=== PATIENT | male | born 1945 | race Caucasian/White ===

== ENCOUNTER → 2016-10-21 | Outpatient (CLI) | payer OTHER ==
[~2016-10-21] VITALS: Ht 167.6 cm; Wt 64.4 kg
[~2016-10-21] MED LIST: BENTYL 10 MG CA10 M1 PO; CENTRUM SILVER1 EAC2 PO; FISH OIL 1,001000 M2 PO; FOLIC ACID 40400 MCG PO; PERCOCET PO; SIMVASTATIN5 MG PO; VALTREX 500 MG500 MG PO; VITAMIN B-12500 MCG PO; VITAMIN D1000 UNI1 PO; VITAMINC500 PO
--- NOTE | ~2016-10-21 | S ---
[facility] [place] [address] SURGICAL PATH RPT PROCEDURE Name: EULALIO LIRIANO Room #: REG CLI M.R.#: [id number] Admission: 10/21/16 Date of : 47 Discharge: Report #: [id number] Path Case #: [id number] PATHOLOGY REPORT COLLECTION DATE: 10/21/2016 RECEIVED DATE: 10/21/2016 SUBMITTING PHYS: Dr. Afshin Turner OTHER PHYS: Dr Anny Aceves SPECIMEN(S) RECEIVED: A.Bx at cecal polyp (forceps) * * * * * * * * * * * * FINAL DIAGNOSIS: Polyp, cecal polyp, endoscopic biopsy: - Hyperplastic changes and a lymphoid aggregate. - Negative for dysplasia. (IUV:pit; 10/24/2016) PATHOLOGIST: Claudia Todd M.D. REPORT ELECTRONICALLY SIGNED BY: Claudia Todd M.D. DATE/TIME: 10/24/2016 16:11 * * * * * * * * * * * * GROSS PATHOLOGY: Received in formalin labeled "Eulalio Liriano, biopsy of cecal polyp," is a segment of scott soft tissue measuring 0.4 cm in maximum dimension. The specimen is submitted entirely in cassette A1. (KAH; 10/22/2016) CLINICAL HISTORY: Pre-op diagnosis: History of adenoma, history of polyps Post-op diagnosis: Diverticulosis, cecal polyp INITIAL CPT CODE(S): A; 60772 Professional services performed by [facility] at [facility] [address] , [place] [address] Technical services performed by [facility] at [address] [place] [address], [facility] [address], [place] [address]. [facility] [address] [place] [address] SURGICAL PATH RPT PROCEDURE Name: EULALIO LIRIANO Room #: REG RODDY Jett.#: [id number] Admission: 10/21/16 Date of : 47 Discharge: Report #: [id number] Path Case #: [id number] [facility] [address] [address] PHONE: [phone] DIRECTOR: Vipul Kim M.D. * * * END OF REPORT * * *
== END ==
LOC: GI 07:55
DX: Z09 Encounter for follow-up examination after completed treatment for conditions other than malignant neoplasm (principal); Z86.010 Personal history of colon polyps; D12.0 Benign neoplasm of cecum; K57.30 Diverticulosis of large intestine without perforation or abscess without bleeding
CPT/HCPCS: 62110; 62900

== ENCOUNTER 2019-10-29 17:28 | Emergency (ER) | payer OTHER ==
[~2019-10-29] VITALS: Ht 170.2 cm; Wt 65.8 kg
[2019-10-29] MEDS ORDERED: VALSARTAN80 MG PO (17:35)
[2019-10-29 18:16] LABS: URINE BILIRUBIN NEGATIVE (Negative); URINE BLOOD NEGATIVE (Negative); URINE CLARITY CLEAR; URINE COLOR YELLOW; URINE GLUCOSE-RANDOM* NEGATIVE (Negative); URINE KETONES NEGATIVE (Negative); URINE LEUKOCYTES-REFLEX NEGATIVE (Negative); URINE NITRITE-REFLEX NEGATIVE (Negative); URINE PROTEIN (DIPSTICK) NEGATIVE (Negative); URINE UROBILINOGEN 0.2 E.U./dl (0.2-1.0)
== END 2019-10-29 18:30 | disposition home or self-care (01) ==
LOC: ER 17:28
PROVIDERS: Emergency Medicine
DX: K46.9 Unspecified abdominal hernia without obstruction or gangrene (principal); E78.5 Hyperlipidemia, unspecified; Z79.899 Other long term (current) drug therapy

== ENCOUNTER → 2019-11-29 | Outpatient (CLI) | payer OTHER ==
[~2019-11-29] MED LIST changes: +VALSARTAN80 MG PO
== END ==
LOC: LAB 10:34
PROVIDERS: ATTEND Student in an Organized Health Care Education/Training Program
DX: Z01.812 Encounter for preprocedural laboratory examination (principal); Z11.59 Encounter for screening for other viral diseases

== ENCOUNTER 2019-12-04 06:44 | Day surgery (SDC) | payer OTHER ==
[~2019-12-04] VITALS: Ht 167.6 cm; Wt 63.5 kg
--- NOTE | ~2019-12-04 | O ---
[facility] [place] [address] OPERATIVE REPORT Name: JIM LIRIANO Room #: 150-3 [facility] M.R.#: [id number] Admission: 12/04/19 Attend Phys: Jimi Green MD Discharge: Date of : 47 Report #: [id number] THIS REPORT FOR: cc: Adonay Martin,Adonay Dotson,Jimi Melvin MD ~ CC: Adonay Begum DATE OF SERVICE: 12/04/2019 PATIENT OF: Dr. Jimi Green, Dr. Adonay Martin. PREOPERATIVE DIAGNOSIS: Right inguinal hernia. POSTOPERATIVE DIAGNOSIS: Right inguinal hernia. PROCEDURE: Right inguinal hernia repair with Prolene hernia system mesh. SURGEON: Jimi Green MD ANESTHESIA: Local IV sedation. DESCRIPTION OF PROCEDURE: The patient was brought to the operating room and placed on operative table in the supine position. Sequential compression devices were in place for DVT prophylaxis. There was no indication for preoperative antibiotics. The patient underwent IV sedation and the right inguinal area was then prepped and draped in a sterile fashion. Skin and subcutaneous tissue were then infiltrated with 0.5% Marcaine and 1% Xylocaine in a 1:1 mixture. Right inguinal skin incision was then performed using #10 scalpel blade. Hemostasis obtained using the electrocautery. Dissection was carried down through subcutaneous tissue and further hemostasis was obtained with clamps and 2-0 chromic ties. The external oblique fascia was then identified and incised with a knife and opened with the Metzenbaum scissors. The ilioinguinal nerve was identified, dissected free, injected with the local mixture and preserved. The cord was then elevated and held in place with a Dieter drain. Cremasteric muscle fibers were then split in the direction of their fibers using clamp and electrocautery. There was no indirect inguinal hernia sac. The floor was then inspected and there was a small to moderate sized direct inguinal hernia defect. This hernia sac was dissected free and incised just above the level of the floor and reduced back through the floor. The preperitoneal space was then developed using a Ray-Jaycob, which was immediately removed. An extended Prolene hernia system mesh was then inserted through the floor and then underlay patch was then deployed in the preperitoneal space. The connector was left in the floor and the overlay patch was then [address] [address] OPERATIVE REPORT Name: JIM LIRIANO Room #: 150-3 [facility] M.Patrice.#: [id number] Admission: 12/04/19 Attend Phys: Jimi Green MD Discharge: Date of : 47 Report #: [id number] deployed into the inguinal canal. The overlay patch was secured to the pubic tubercle and superiorly with simple interrupted 2-0 Vicryl sutures. It was then secured at the connector using a simple interrupted 2-0 Vicryl suture. The mesh was split and wrapped around the cord, secured to the inguinal ligament with simple and interrupted 2-0 Vicryl suture. The cord and ilioinguinal nerve were then returned to the canal intact. The external oblique fascia was then closed using running 2-0 Vicryl suture. Lico's fascia was then reapproximated using simple interrupted 2-0 chromic sutures and the skin then closed with a running 4-0 subcuticular Vicryl stitch. Wound was then dressed with Mastisol, 1/2-inch Steri-Strips cut in half, Telfa, 4 x 4 gauze, sponge and tape. The patient was then awakened from the IV sedation, taken to recovery room awake, alert and in good condition. Estimated blood loss was approximately 5 mL and the patient tolerated procedure well. All sponge, lap and instrument counts correct x 2. By: 1023 [id number] Jimi Green MD /nt
[~2019-12-04 06:44] MED LIST changes: +ZOCOR20 MG PO
[2019-12-04 07:51] VITALS: BP 139/70
--- NOTE | 2019-12-04 07:55 | EKG ---
[facility] [place] [address] ELECTROCARDIOGRAM REPORT Name: JIM LIRIANO Room #: 1503 [facility] M.R.#: [id number] Admission: 12/04/19 Attend Phys: Jimi Green MD Discharge: Date of : 47 Report #: [id number] THIS REPORT FOR: cc: Adonay Martin Theodore M. DO Lundgren, Craig H. MD [facility] THIS REPORT FOR: //name// [facility] Test Date: 2019-12-04 Test Time: 07:20:56 Pat Name: JIM LIRIANO Department: Room: 150 3 Gender: M Party Coordinator: JLUIS : 1945 Requested By: Jimi Green Order Number: [id number] MD: Marcus Raphael Measurements Intervals [place] Rate: 63 P: 76 [place]: 169 QRS: 80 QRSD: 92 T: 51 QT: 439 QTc: 450 Interpretive Statements Sinus rhythm No significant abnormality Compared to ECG 05/03/2000 08:52:39 No significant changes Electronically Signed On 12-04-2019 7:55:41 CDT by Marcus Raphael [email or web address] <ELECTRONICALLY SIGNED> By: Marcus Raphael MD, FACC 12/04/19 0755 9 9 Marcus Raphael MD, [facility] /EPI
[2019-12-04] MEDS ORDERED: LORCET 5-325 M1 EACH PO (10:26)
[2019-12-04 10:46] VITALS: BP 139/70
== END 2019-12-04 11:30 | disposition home or self-care (01) ==
LOC: OR 06:44 → TBA 06:49 → OR 11:30
PROVIDERS: ATTEND Surgery
DX: K40.90 Unilateral inguinal hernia, without obstruction or gangrene, not specified as recurrent (principal); I10 Essential (primary) hypertension; E78.00 Pure hypercholesterolemia, unspecified; F41.9 Anxiety disorder, unspecified; Z98.890 Other specified postprocedural states; Z79.899 Other long term (current) drug therapy; Z98.41 Cataract extraction status, right eye; Z98.42 Cataract extraction status, left eye
CPT/HCPCS: 50010; 50101; 50386; 50417; 54111; 56524; 56526; 56528; 62110; 62850; 70005

== ENCOUNTER 2020-03-27 07:21 | Emergency (ER) | payer OTHER ==
[~2020-03-27] VITALS: Ht 167.6 cm; Wt 63.5 kg
[~2020-03-27 07:21] MED LIST changes: +LORCET 5-325 M1 EACH PO
[2020-03-27 11:24] VITALS: BP 130/58
== END 2020-03-27 11:24 | disposition home or self-care (01) ==
LOC: ER 07:21
DX: R51.9 Headache, unspecified (principal); R09.02 Hypoxemia; J02.9 Acute pharyngitis, unspecified; M43.6 Torticollis; Z20.828 Contact with and (suspected) exposure to other viral communicable diseases; I10 Essential (primary) hypertension; E78.00 Pure hypercholesterolemia, unspecified; F41.9 Anxiety disorder, unspecified; Z98.890 Other specified postprocedural states; Z79.899 Other long term (current) drug therapy